=== PATIENT | female | born 1995 | race African-American/Black ===

== ENCOUNTER → 2017-03-17 | Outpatient (REF) | payer OTHER | LOC: M SFHCWAGY 15:13 | PROVIDERS: ATTEND Nurse Practitioner Family | DX: R87.619 Unspecified abnormal cytological findings in specimens from cervix uteri (principal) | CPT/HCPCS: 87624; G0123 ==

== ENCOUNTER 2017-06-23 17:39 | Emergency (ER) | payer OTHER ==
[~2017-06-23] VITALS: Ht 182.9 cm; Wt 125.0 kg
[2017-06-23] MEDS ORDERED: ONE A DAY WOMENS PO (17:51)
[2017-06-23] MEDS ORDERED: IRON65TA PO (17:51)
[2017-06-23] MEDS ORDERED: VITA100T20 PO (17:51)
[2017-06-23] MEDS ORDERED: FISH1000 PO (17:51)
[2017-06-23] MEDS ORDERED: VITA200016 PO (17:51)
[2017-06-23] MEDS ORDERED: NS 1,000 ML IV ONE (19:45)
[2017-06-23 20:12] LABS: BASO # 0.1 10^3/uL (0.0-0.2); BASO % 0.9 % (0.0-1.0); EOS # 0.3 10^3/uL (0.0-0.50); EOS % 2.8 % (0.0-3.0); IMMATURE GRANULOCYTE % 0.2 % (0-0); LYMPH # 3.8 10^3/uL (1.5-6.5); LYMPH % 42.4 % (24.0-44.0); MEAN CORPUSCULAR HEMOGLOBIN 24.7 pg (27.0-33.0); MEAN CORPUSCULAR HGB CONC 33.4 g/dl (32.0-36.5); MONO # 0.6 10^3/uL (0.0-0.8); MONO % 6.7 % (0.0-5.0); NEUTROPHILS # 4.2 10^3/uL (1.8-7.7); PLATELET COUNT, AUTOMATED 334 10^3/uL (150-450); RED CELL DISTRIBUTION WIDTH 15.8 % (11.5-14.5); WHITE BLOOD COUNT 8.9 10^3/uL (4.0-10.0)
[2017-06-23 20:14] LABS: ADD MORPHOLOGY? YES; MEAN CORPUSCULAR VOLUME 73.9 fl (80.0-96.0)
[2017-06-23 20:27] LABS: CONTROL LINE HCG INT CTR LINE PRESENT; INR 1.14
[2017-06-23 20:35] LABS: ANION GAP 8 MEQ/L (8-16); BLOOD UREA NITROGEN 11 MG/DL (7-18); CALCIUM LEVEL 9.4 MG/DL (8.5-10.1); CARBON DIOXIDE LEVEL 25 MEQ/L (21-32); CHLORIDE LEVEL 105 MEQ/L (98-107); CREATININE FOR GFR 0.94 MG/DL (0.55-1.02); GLOMERULAR FILTRATION RATE > 60.0 (>60); GLUCOSE, FASTING 86 MG/DL (70-105); SODIUM LEVEL 138 MEQ/L (136-145)
--- NOTE | 2017-06-23 21:30 | REPUSA ---
Clinical history: Pain. Heavy bleeding. Findings: Real-time transabdominal and transvaginal ultrasound images of the pelvis were obtained. An anteverted uterus is noted, measuring 7.2 x 3.1 x 3.8 cm. The uterus demonstrates normal echotexture and echogenicity. The endometrial stripe measures 14 mm and is slightly echogenic. The right ovary m easures 4.0 x 2.6 x 2.9 cm. The left ovary measures 4.6 x 1.8 x 2.9 cm. There is a simple left ovaria n cyst, measuring 3.0 x 1.6 x 2.3 cm. No adnexal masses are seen. Color Doppler flow is seen within b oth ovaries. There is no evidence of free fluid. Impression: 1. Simple left ovarian cyst. 2. Slightly thickened and echogenic endometrial stripe, likely because of the patient's menstrual cyc le. Follow-up is recommended as clinically indicated. Y
[2017-06-23 22:09] VITALS: BP 133/84
[2017-06-23 22:09] LABS: ANISOCYTOSIS 2+
== END 2017-06-23 22:11 | disposition home or self-care (01) ==
LOC: M ED 17:39
DX: N92.0 Excessive and frequent menstruation with regular cycle (principal); N83.202 Unspecified ovarian cyst, left side

== ENCOUNTER → 2018-02-08 | Outpatient (REF) | payer OTHER ==
[2018-02-11 14:13] LABS: HPV HYBRID CAPTURE II Positive (Negative)
== END ==
LOC: M SFHCWAGY 12:30
DX: Z12.4 Encounter for screening for malignant neoplasm of cervix (principal)
CPT/HCPCS: G0123